=== PATIENT | female | born 1945 | race Caucasian/White ===

== ENCOUNTER 2024-11-13 11:01 | Emergency (ER) | payer OTHER ==
[2024-11-13] MEDS ORDERED: HYDROCODONE/APAP 5/325 MG TAB ONE (11:11)
[2024-11-13] MEDS ORDERED: KETOROLAC 30 MG/ML INJ ONE (11:12)
--- NOTE | 2024-11-13 12:01 | RAD REPORT ---
EXAMINATION: UPPER EXTREMITY VENOUS UNILATE CLINICAL INDICATION: Female, 79 years old. [facility] MAIN Pain;Swelling Bed Name: 19 TECHNIQUE: Complete venous duplex sonography of the left upper extremity was performed. The examinati on included compression for vein patency, color Doppler imaging and flow augmentation in response to distal compression of the internal jugular, brachiocephalic, subclavian, axillary, brachial, radia l, ulnar, cephalic and basilic veins. COMPARISON: No prior exam. FINDINGS: Duplex sonography testing of the veins of the left upper extremity is completed. Color flow imaging s hows all veins to be compressible with appropriate color filling. Pulsatile and phasic flow is present within the upper extremity deep and superficial veins examined. IMPRESSION: There is no deep vein or superficial vein thrombosis.
--- NOTE | 2024-11-13 12:50 | RAD REPORT ---
EXAMINATION: XR Elbow Left 3 View CLINICAL INDICATION: Female, 79 years old. Pain;Swelling TECHNIQUE: 3 view radiographs of the left elbow were obtained. COMPARISON: No prior exam. FINDINGS: No evidence of fracture or dislocation. Normal alignment. No joint effusion. Mild degenerat radha changes elbow joint. Linear radiodensities at the common flexor tendon and triceps attachment with overlying swelling, could relate to sequelae of calcific tendinitis or enthesitis. IMPRESSION: No acute osseous abnormalities. Soft tissue abnormalities as above.
--- NOTE | 2024-11-13 13:00 | ER ---
Nurse's Notes [facility] Name: Stepan Snow Age: 79 yrs Sex: Female : 1945 Arrival Date: 11/13/2024 Time: 11:01 Bed 19 Private MD: Diagnosis: Lateral epicondylitis, left elbow Presentation: 11/13 11:15 Chief complaint: Patient states: LT ELBOW PAIN, SWELLING AND BRUISING X 1 MOTH. REPORTS dd2 OCCURRED AFTER A [address] TRIP AND HAS WORSENED. Coronavirus screen: At this time, the client does not indicate any symptoms associated with coronavirus-19. Ebola Screen: No symptoms or risks identified at this time. Initial Sepsis Screen: Does the patient meet any 2 criteria? No. Patient's initial sepsis screen is negative. Does the patient have a suspected source of infection? No. Patient's initial sepsis screen is negative. Risk Assessment: Do you want to hurt yourself or someone else? Patient reports no desire to harm self or others. Onset of symptoms is unknown. 11:15 Method Of Arrival: Ambulatory dd2 11:15 Acuity: JANEEN 3 dd2 Triage Assessment: 11:16 General: Appears in no apparent distress. uncomfortable, Behavior is calm, cooperative, dd2 appropriate for age. Pain: Complains of pain in left elbow and palmar aspect of left forearm Pain currently is 8 out of 10 on a pain scale. Derm: Skin is red, LT FOREARM Bruising that is dark purple, on left elbow. Musculoskeletal: Swelling present in left elbow and palmar aspect of left forearm Reports pain in left elbow and palmar aspect of left forearm. Historical: - Allergies: 11:16 Levaquin; dd2 - PMHx: 11:16 Hypertensive disorder; Coronary atherosclerosis; dd2 - PSHx: 11:16 Coronary artery bypass graft; Total abdominal hysterectomy; Carotid endarterectomy; dd2 - Immunization history:: Adult Immunizations up to date. - Infectious Disease History:: Denies. - Social history:: Smoking status: Patient denies any tobacco usage or history of. Screenin:07 [facility] ED Fall Risk Assessment (Adult) History of falling in the last 3 months, db including since admission No falls in past 3 months (0 pts) Confusion or Disorientation No (0 pts) Intoxicated or Sedated No (0 pts) Impaired Gait No (0 pts) Mobility Assist Device Used No (0 pt) Altered Elimination No (0 pt) Score/Fall Risk Level 0 - 2 = Low Risk Oriented to surroundings, Maintained a safe environment. Abuse screen: Denies threats or abuse. Denies injuries from another. Nutritional screening: No deficits noted. Tuberculosis screening: No symptoms or risk factors identified. Assessment: 12:07 Reassessment: Patient appears in no apparent distress at this time. Patient and/or db family updated on plan of care and expected duration. Pain level reassessed. Patient is alert, oriented x 3, equal unlabored respirations, skin warm/dry/pink. General: Appears in no apparent distress. comfortable, Behavior is calm, cooperative. Neuro: Level of Consciousness is awake, alert, obeys commands, Oriented to person, place, time, situation. Respiratory: Airway is patent Respiratory effort is even, unlabored, Respiratory pattern is regular, symmetrical. 13:00 Reassessment: Patient appears in no apparent distress at this time. Patient and/or kj2 family updated on plan of care and expected duration. Pain level reassessed. Patient is alert, oriented x 3, equal unlabored respirations, skin warm/dry/pink. Vital Signs: 11:15 BP 146 / 59; Pulse 65; Resp 16; Temp 98.4; Pulse Ox 98% on R/A; Weight 79.38 kg; Height dd2 5 ft. 1 in. ; Pain 8/10; 12:05 BP 151 / 60; Pulse 53; Resp 18; Pulse Ox 95% ; kj2 13:20 BP 150 / 60; Pulse 56; Resp 18; Temp 98; Pulse Ox 100% on R/A; kj2 11:15 Body Mass Index 33.07 (79.38 kg, 154.94 cm) dd2 11:15 Pain Scale: Adult dd2 ED Course: 11:05 Patient arrived in ED. cj3 11:06 [facility]C [facility]5 11:06 Merline Alexander MD is Attending Physician. dr5 11:16 Triage completed. dd2 11:16 Arm band placed on right wrist. dd2 11:26 Estee Arenas, RN is Primary Nurse. db 11:32 Radiology exam delayed due to ULTRASOUND IN ROOM DOING EXAM. az 11:55 UPPER EXTREMITY VENOUS UNILATE In Process Unspecified. EDMS 12:05 Provided Education on: CALL LIGHT. kj2 12:07 Patient has correct armband on for positive identification. Bed in low position. Call db light in reach. Side rails up X 1. Pulse ox on. NIBP on. Warm blanket given. Pillow given. 12:11 Elbow Left 3 View XRAY In Process Unspecified. EDMS 13:15 No provider procedures requiring assistance completed. kj2 13:21 Patient did not have IV access during this emergency room visit. kj2 Administered Medications: 11:28 Drug: Ketorolac IM 30 mg IM once Route: IM; Site: right deltoid; iw 13:16 Follow up: Response: No adverse reaction kj2 11:28 Drug: HYDROcodone-acetaminophen PO 5 mg-325 mg 1 tabs PO once Route: PO; iw 13:16 Follow up: Response: No adverse reaction kj2 Medication: 12:07 VIS not applicable for this client. db Outcome: 12:05 Discharged to home ambulatory, with family, kj2 12:05 Condition: stable 12:05 Discharge instructions given to patient, family, Instructed on discharge instructions, follow up and referral plans. Demonstrated understanding of instructions, follow-up care, medications, Prescriptions given X 1, 13:00 Discharge ordered by MD. dr5 13:21 Patient left the ED. kj2 Signatures: Dispatcher [employer] Zully Whitney, RN RN Cira Shaver Danielle RN RN db Mariah Thornton RN RN kj2 MICHAEL QUINTANILLA RN RN dd2 Ryder Armenta, ADVERTISING ANALYST-C ADVERTISING ANALYST-5 Yu [place]ters 3 Corrections: (The following items were deleted from the chart) 11:17 11:16 Allergies: No Known Allergies; dd2 dd2
--- NOTE | 2024-11-13 13:00 | EDPHYS ---
Physician Documentation [facility] Name: Stepan Snow Age: 79 yrs Sex: Female : 1945 Arrival Date: 11/13/2024 Time: 11:01 Bed 19 Private MD: ED Physician Merline Alexander HPI: 11/13 11:46 This 79 yrs old Female presents to ER via Ambulatory with complaints of Arm dr5 Pain - LT. 11:46 The patient or guardian complains of pain, swelling. Onset: The symptoms/episode dr5 began/occurred 1 month(s) ago. Patient is a 79-year-old female with history of hypertension and coronary arthrosclerosis coming in with left elbow swelling and pain that is worsened over the last month. at bedside states that they went on a long road trip a month ago in which she was holding her arm on the windowsill for multiple hours at a time. Patient states that her pain and swelling has been intermittent but feels he gets worsening. Patient denies chest pain, shortness of breath, abdominal pain, nausea, vomit, diarrhea.. Historical: - Allergies: 11:16 Levaquin; dd2 - PMHx: 11:16 Hypertensive disorder; Coronary atherosclerosis; dd2 - PSHx: 11:16 Coronary artery bypass graft; Total abdominal hysterectomy; Carotid endarterectomy; dd2 - Immunization history:: Adult Immunizations up to date. - Infectious Disease History:: Denies. - Social history:: Smoking status: Patient denies any tobacco usage or history of. ROS: 11:46 Constitutional: as per hpi dr5 Exam: 11:46 Constitutional: This is a well developed, well nourished patient who is awake, alert, dr5 and in no acute distress. Head/Face: Normocephalic, atraumatic. Eyes: Pupils equal round and reactive to light, extra-ocular motions intact. Lids and lashes normal. Conjunctiva and sclera are non-icteric and not injected. Cornea within normal limits. Periorbital areas with no swelling, redness, or edema. Neck: Trachea midline, no thyromegaly or masses palpated, and no cervical lymphadenopathy. Supple, full range of motion without nuchal rigidity, or vertebral point tenderness. No Meningismus. Chest/axilla: Normal chest wall appearance and motion. Nontender with no deformity. No lesions are appreciated. Cardiovascular: Regular rate and rhythm with a normal S1 and S2. Normal PMI, no JVD. No pulse deficits. Respiratory: Lungs have equal breath sounds bilaterally, clear to auscultation. No rales, rhonchi or wheezes noted. No increased work of breathing, no retractions or nasal flaring. Back: No spinal tenderness. No costovertebral tenderness. Full range of motion. Skin: Warm, dry with normal turgor. Normal color with no rashes, no lesions, and no evidence of cellulitis. Neuro: Awake and alert, GCS 15, oriented to person, place, time, and situation. Cranial nerves II-XII grossly intact. Motor strength 5/5 in all extremities. Sensory grossly intact. Cerebellar exam normal. Normal gait. 11:46 Musculoskeletal/extremity: Extremities: grossly normal except: noted in the left elbow and palmar aspect of left forearm: swelling, tenderness, ROM: no acute changes, intact in all extremities, Circulation is intact in all extremities. Sensation intact. Weight bearing: able to fully bear weight, Tendon exam: specific tendon testing normal through active and passive range of motion Vital Signs: 11:15 BP 146 / 59; Pulse 65; Resp 16; Temp 98.4; Pulse Ox 98% on R/A; Weight 79.38 kg; Height dd2 5 ft. 1 in. ; Pain 8/10; 12:05 BP 151 / 60; Pulse 53; Resp 18; Pulse Ox 95% ; kj2 13:20 BP 150 / 60; Pulse 56; Resp 18; Temp 98; Pulse Ox 100% on R/A; kj2 11:15 Body Mass Index 33.07 (79.38 kg, 154.94 cm) dd2 11:15 Pain Scale: Adult dd2 Procedures: 13:35 Splinting: Splint applied to left elbow using ponce wrap, applied by nurse. Examined by dr5 me, post splint application: neurovascular intact, 2+ distal pulses palpable, brisk capillary refill noted, Patient tolerated well. MDM: 11:06 Medical Screening Exam initiated dr5 13:35 Differential diagnosis: dislocation, contusion, abrasion, tendonitis. Data reviewed: dr5 vital signs, nurses notes, radiologic studies, plain films, ultrasound. Consideration of Admission/Observation Escalation of care including admission/observation considered. Escalation considered patient found to have DVT. I considered the following discharge prescriptions or medication management in the emergency department I discussed and recommended Over The Counter medications, Medications were administered in the Emergency Department. See MAR. Independent interpretation of the following test(s) in the Emergency Department X-Ray: My interpretation is Independent trepidation of x-ray does not reveal fracture. Historians other than the Patient: Spouse/Significant Other: . Care significantly affected by the following chronic conditions: Hypertension, Coronary arthrosclerosis. Care significantly affected by the following Social Determinants of Health: Poor access to healthcare and/or lack of insurance, Poor access to transportation, Problems related to employment. Counseling: I had a detailed discussion with the patient and/or guardian regarding the historical points, exam findings, and any diagnostic results supporting the discharge/admit diagnosis, the presence of at least one elevated blood pressure reading (>120/80) during this emergency department visit, radiology results, the need for outpatient follow up, for definitive care, a family practitioner. Medication response: [place], Toradol. Response to treatment: the patient's symptoms have markedly improved after treatment. Special discussion: I discussed with the patient/guardian in detail that at this point there is no indication for admission to the hospital. It is understood, however, that if the symptoms persist or worsen the patient needs to return immediately for re-evaluation. Based on the history and exam findings, there is no indication for further emergent testing or inpatient evaluation. I discussed with the patient/guardian the need to see the orthopedic surgeon for further evaluation of the symptoms. ED course: Recommended RICE. Tendinitis noted on x-ray. Will give patient short course of steroids to help with inflammation. Recommend patient follow-up with primary care doctor. All questions answered. Strict ER precautions given.. 11/13 11:10 Order name: Elbow Left 3 View XRAY; Complete Time: 12:59 dr5 11/13 11:16 Order name: UPPER EXTREMITY VENOUS UNILATE; Complete Time: 12:11 EDMS 11/13 13:08 Order name: Ponce Wrap; Complete Time: 13:16 dr5 Administered Medications: 11:28 Drug: Ketorolac IM 30 mg IM once Route: IM; Site: right deltoid; iw 13:16 Follow up: Response: No adverse reaction kj2 11:28 Drug: HYDROcodone-acetaminophen PO 5 mg-325 mg 1 tabs PO once Route: PO; iw 13:16 Follow up: Response: No adverse reaction kj2 Disposition Summary: 11/13/24 13:00 Discharge Ordered Notes: Location: Home dr5 Condition: Stable dr5 Diagnosis - Lateral epicondylitis, left elbow dr5 Followup: dr5 - With: Emergency Department - When: As needed - Reason: Worsening of condition Followup: dr5 - With: Private Physician - When: 1 - 2 days - Reason: Recheck today's complaints, Continuance of care, Re-evaluation by your physician Discharge Instructions: - Discharge Summary Sheet dr5 - RICE Therapy for Routine Care of Injuries dr5 - Tendinitis dr5 Forms: - Medication Reconciliation Form dr5 - Patient Portal Instructions dr5 - Leadership Thank You Letter dr5 Prescriptions: - Medrol (Uzair) 4 mg Oral Tablets, Dose Pack - take 1 tablet ORAL route as directed - follow package instructions; 1 packet; dr5 Refills: 0, Product Selection Permitted Signatures: Dispatcher [employer] EDMS Zully Gloria RN RN iw DAVIS, DIANA, RN RN dd2 Ryder Armenta, HORSE RACE TIMER-C HORSE RACE TIMER-[facility]5 Mariah Thornton RN kj2 Corrections: (The following items were deleted from the chart) 11:10 11:10 Extremity Venous Uni Ltd+US.RAD.BRZ ordered. EDMS EDMS 11:10 11:10 Elbow Left 3 View+RAD.RAD.BRZ ordered. EDMS EDMS 11:17 11:16 Allergies: No Known Allergies; dd2 dd2
[2024-11-13 13:31] VITALS: BP 150/60; TEMP 98; O2SAT 100
== END 2024-11-13 13:21 | disposition home or self-care (01) ==
LOC: ER 11:01
DX: M77.12 Lateral epicondylitis, left elbow (principal)
CPT/HCPCS: 93971; 96372; 99284; J1885